=== PATIENT | male | born 1975 | race Caucasian/White ===

== ENCOUNTER 2025-09-21 09:11 | Outpatient (REF) | payer OTHER, SELFPAY ==
[2025-09-21 13:24] LABS: Appearance Urine Clear; Glucose Urine UA Negative (Negative); PH 5.5 (5.0-9.0); Specific Gravity - Urine >= 1.030 (1.005-1.025); UMIC TRIGGER UA YES
[2025-09-21 13:47] LABS: Hematocrit 54.3 % (42.0-52.0); Hemoglobin 18.1 g/dl (14.0-18.0); Mean Corpuscular HGB Conc 33.3 g/dl (31.0-36.0); Mean Corpuscular Hemoglobin 30.0 pg (27.0-33.0); Mean Corpuscular Volume 90.0 fL (80.0-98.0); NRBC Abs Auto 0.000 X10*3/uL (0.0-0.012); NRBC Pct Auto 0.0 /100WBC (0.0-0.2); Platelet Count 297 X10*3/uL (160-400); Red Blood Count 6.03 X10*6/uL (4.60-5.80); White Blood Count 4.9 X10*3/uL (4.8-10.8)
[2025-09-21 13:57] LABS: Alanine Aminotransferase 43 U/L (0-40); Albumin Level 4.4 g/dL (3.5-5.0); Alkaline Phosphatase 76 U/L (39-117); Anion Gap 11 (12-20); Aspartate Amino Transferase 27 U/L (5-37); Blood Urea Nitrogen 17 mg/dL (9-16); Calcium 9.2 mg/dL (8.4-10.2); Carbon Dioxide 27 mmol/L (22-29); Chloride 104 mmol/L (96-108); Cholesterol 305 mg/dL (<200); Estimated Glomerular Filt Rate > 60; HDL Cholesterol 47 mg/dL (>40); Potassium 4.5 mmol/L (3.3-5.1); Sodium 137 mmol/L (135-145); Total Protein 6.8 g/dL (6.5-8.0); Triglycerides 103 mg/dL (<150)
[2025-09-21 14:19] LABS: Thyroid Stimulating Hormone 1.54 uIU/mL (0.32-4.0)
== END 2025-09-21 09:12 | disposition home or self-care (01) ==
LOC: HO.HMGCLDS 09:11
PROVIDERS: PCP Internal Medicine; Visit Provider Internal Medicine
DX: E11.9 Type 2 diabetes mellitus without complications (principal); Z12.5 Encounter for screening for malignant neoplasm of prostate
CPT/HCPCS: 36415; 80048; 80061; 80076; 81001; 83036; 84153; 84443; 85027; 90471

== ENCOUNTER 2025-09-21 09:11 | Outpatient (AMB) | payer OTHER, SELFPAY ==
--- NOTE | 2025-09-21 09:25 | A.OFFPC_ITS ---
Vital Signs 09/21/25 09:28 Height 5 ft 8.9 in Weight 187 lb BMI 27.7 BP 143/83 H Blood Pressure Location Rt brachial Position Sitting Respiration 14 Pulse 82 Pulse Source Pulse Oximeter Temp 97.6 F Temp Source Temporal Artery Scan Pulse Oximetry (%) 99 Oxygen Delivery Method Room Air Intake Visit Reasons: Establish Care - see comments Promotional Marketing Analyst Required: No Accompanied by: Self / Same As Patient Allergies No Known Allergies Allergy (Verified 09/21/25 10:14) Medication List - Last Reconciled 09/21/25 by Gennaro العراقي MD blood sugar diagnostic (OneTouch Verio test strips) As directed Tobacco use date assessed: 09/21/25 Dental Screening Dental Screen Date: 09/21/25 Did you have a dental visit in the last 12 months?: Yes Did you have a dental problem in the last 6 months where you did not have access to dental care?: No Was dental information given to patient?: Patient has dentist HPI HPI Comments History of Present Illness Details History of Present Illness - The patient is a 50 year old individua l presenting to establish care and for routine lab monitoring. - The patient is transferring care due t o dissatisfaction with a previous provider, citing issues with the timing of blood work relative to appointments and billing practices. - The patient has a history of type 2 di abetes, diagnosed in October 2019 with an initial HbA1c of 9.1. - The diagnosis followed a period of sig nificant emotional distress and a diet consisting of soda and candy after the of the patient's son in July 2019. - The patient was previously on Tresiba for five years but discontinued the medication in February. - The patient's HbA1c has decreased from 6.2 to 6.1, which is in the prediabetic range. - Since February, the patient has implemented significant lifestyle and diet changes, resulting in a 10-pound weight loss. - The patient reports morning fasting bl ood glucose levels in the 130s to 140s. - There is no family history of diabetes . 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 - The patient recently completed physica l therapy for the shoulder but notes it may require surgery. - The patient reports a persistent lump on the neck and itchy ears that began before March. Social History - Employment: The patient is a retired [employer] officer. - Substance Use: The patient denies any alcohol use or smoking. - Exercise: The patient has a lifelong h istory of weightlifting but has been limited recently due to a shoulder injury. - The patient engages in cardiovascular exercise, such as running or inclined walking, to manage blood glucose levels. - Nutrition: The patient implemented a s ignificant dietary lifestyle change in February and is dedicated to maintaining it. - The patient reports monitoring macronu trient intake, including protein and fat. - Family: The patient experienced the de ath of a son in 2019 and has another son currently serving in the . Results - Labs (per patient report): HbA1c is 6. 1%, which is a decrease from a previous value of 6.2%. [facility] Medical History (Updated 09/21/25 @ 10:14 by Gennaro العراقي MD) Prediabetes Family History (Updated 09/21/25 @ 09:38 by SANDY Rodriguez) Father Heart attack Mother No problems noted. Social History (Updated 09/21/25 @ 09:39 by SANDY Rodriguez) Housing: House Alcohol intake: current Alcohol intake frequency: does not drink Patient Tobacco Use Status: Former Tobacco user service: No Current occupational status: retired and disabled Cognitive needs: No Hearing needs: Yes (b/l hearing aids) Vision needs: Yes (rx glasses) Questionnaire PHQ-9 Over the last 2 weeks, how often have you been bothered by any of the following problems? 1. Little interest or pleasure in doing things: not at all 2. Feeling down, depressed, or hopeless: not at all 3. Trouble falling or staying asleep, or sleeping too much: not at all 4. Feeling tired or having little energy: not at all 5. Poor appetite or overeating: not at all 6. Feeling bad about yourself - or that you are a failure or have let yourself or your family down: not at all 7. Trouble concentrating on things, such as reading the newspaper or watching television: not at all 8. Moving or speaking so slowly that other people could have noticed. Or the opposite - being so fidgety or restless that you have been moving around a lot more than usual: not at all 9. Thoughts that you would be better off or of hurting yourself in some way: not at all Total score: 0 Source: Developed by Drs. Jaime Ovalle, Sweta May, Gallo Henderson and colleagues, with an educational sotero from [employer]. Thrive Questionnaire Date Thrive assessed: 09/21/25 I am a: Patient What is your living situation today?: I have a steady place to live Within the past 12 months, did the food you bought not last and you didn't have the money to get more?: Never true Within the past 12 months, did you worry whether your food would run out before you got money to buy more?: Never true Do you have trouble paying for medicines?: No Do you have trouble getting transportation to medical appointments?: No Do you have trouble paying your heating and electricity bill?: No Do you have trouble taking care of your child, family member or friend?: No Do you have trouble with day-to-day activities such as bathing, preparing meals, shopping, managing finances, etc.?: No Are you currently unemployed and looking for a job?: No Are you interested in more education?: No Please select the resources that you would like help with: None THRIVE Score: 0 AUDIT C Alcohol Use Questionnaire (AUDIT-C) 1. How often do you have a drink containing alcohol?: Never 3. How often do you have six or more drinks on one occasion?: Never Total Score: 0 FRANNY-7 AMB Questionnaire FRANNY-7 Date FRANNY - 7 assessed: 09/21/25 Feeling nervous, anxious, or on edge: 0 = Not at all Not being able to stop or control worryin = Not at all Worrying too much about different things: 0 = Not at all Trouble relaxin = Not at all Being so restless that it is hard to sit still: 0 = Not at all Becoming easily annoyed or irritable: 0 = Not at all Feeling afraid as if something awful might happen: 0 = Not at all Total FRANNY-7 score (0-4 normal; 5-9 mild; 10-14 moderate; 15-21 severe): 0 Source: Developed by Sweta Roldan Kurt Kroenke and colleagues, with an educational sotero from [employer]. Review of Systems Narrative Review of Systems - Constitutional: Reports 10-pound weight loss. - HEENT: Reports pruritus in the ears, which prevents the use of hearing aids. - Reports wearing glasses. - Neck: Reports a palpable lump that varies in size. - Musculoskeletal: Reports chronic neck pain and right shoulder pain. Physical exam (Primary Care) Vital Signs: Last Vital Signs Temp 97.6 F 09/21/25 09:28 Pulse 82 09/21/25 09:28 Resp 14 09/21/25 09:28 BP 143/83 H 09/21/25 09:28 Pulse Ox 99 09/21/25 09:28 Oxygen Delivery Method Room Air 09/21/25 09:28 BMI result Body Mass Index 27.7 Tobacco/Smoking Status: Tobacco use Status Tobacco use date assessed 09/21/25 09/21/25 09:26 Patient Tobacco Use Status Former Tobacco user 09/21/25 09:39 PHQ-9: PHQ-9 Score PHQ-9: Total score 0 09/21/25 10:00 Thrive Assessment: Date of Thrive Assessment Date Thrive assessed 09/21/25 09/21/25 09:26 Narrative Physical Exam General: Appearance normal, both eyes and all related structures Nutritional Appearance: Well nourished Orientation/consciousness: Patient oriented x3 Limitations: Shoulder and neck limitations due to three squished discs in the neck and a jacked-up shoulder, possibly requiring surgery Head: Normal to inspection Neck: Normal visual inspection, but with a lump noted, likely a lymph node Chest: Normal palpation of entire chest wall Respiratory: Normal respiratory effort Neurology: Patient oriented x3 Office Procedures Flu Questionnaire Does the patient have a severe egg allergy?: No Does the patient have severe life threatening allergies?: No Does the patient have a fever or illness today?: No Has the patient ever had Guillain-[place] Syndrome?: No Has the patient ever had any past reaction to a flu shot?: No Results AMB Hemoglobin A1c AMB Hemoglobin A1c 6.1 % Last Edit by SANDY Rodriguez on 09/21/25 10:00 Immunizations Fluarix [id number] (PF) 45 mcg (15 mcg x 3)/0.5 mL IM syringe Performing Provider: Gennaro العراقي MD Performing Location: [facility] Documented (not given) by: SANDY Rodriguez on 09/21/25 09:39 Reason Not Given: Patient Refused Results Reviewed Results Reviewed: Laboratory Last Values Hgb A1c (Clinic) 6.1 % (4.0-6.0) H 09/21/25 09:48 Coding Level of Care Code Complex visit Add On G2211 Diagnoses Diabetes mellitus E11.9 Prediabetes R73.03 Assessment & Plan Assessment & Plan (1) Diabetes mellitus: Code(s): E11.9 - Type 2 diabetes mellitus without complications (2) Prediabetes: Code(s): R73.03 - Prediabetes Category: Medical Plan Plan - Will order lab work to be done today, including a complete metabolic panel, lipid panel, HbA1c, PSA, and thyroid panel. - Will follow up with the patient via telephone to discuss the lab results. - The patient will continue with diet and lifestyle modifications for management of prediabetes and will not be started on any medications for glucose control at this time. - A prescription for glucose test strips will be provided. - Will provide referrals for physical therapy for chronic right shoulder pain as needed. - Counseled the patient on the benefits of colon cancer screening with Cologuard or colonoscopy, emphasizing that early detection leads to a 100% cure rate. - The decision to proceed with screening is left to the patient. - The patient declined an influenza vaccination. - The patient was reassured that the palpable neck lump is a lymph node and is not of concern. - Schedule a follow-up appointment in six months, which will serve as the annual physical exam. Discussion Notes I established care with this 50-year-old individual who is transferring from another practice. We reviewed the history of type 2 diabetes, noting the current HbA1c of 6.1 places the patient in the prediabetic range. I supported the patient's decision to manage this with lifestyle changes and no medication at this time, given the patient's recent weight loss and commitment to diet and exercise. I provided education on the pathophysiology of diabetes, explaining that it is likely due to decreased insulin production in the patient's case and that all ingested food is ultimately converted to glucose, which requires insulin for metabolism. We discussed cholesterol goals, emphasizing the importance of LDL as a risk factor for heart disease. I strongly counseled the patient on the importance of colon cancer screening, explaining that it begins as a polyp and is 100% curable if detected and removed early. I compared forgoing screening to driving a car without changing the oil. While the patient initially refused, I left the final decision to pursue screening with Cologuard to the patient, to let me know if the patient changes their mind. I reassured the patient that the palpable neck lump is a benign lymph node. We agreed to a plan for comprehensive blood work today, which I will call to review, and a follow-up for an annual physical in six months. Patient Instructions - Please go to the lab to have your blood drawn today. - We will be checking your blood sugar (HbA1c), cholesterol, kidney function, prostate levels (PSA), and thyroid function. - Continue with your current diet and exercise routines, as they are effectively helping to manage your blood sugar. - Maintain your current weight and avoid gaining weight, as this will help your body manage blood sugar. - Do not smoke or drink alcohol. - I have sent a prescription for more glucose test strips to your pharmacy. - Please consider getting screened for colon cancer. - It is 100% curable if caught early. - If you change your mind and would like to proceed with a test, please call our office. - If you need to attend physical therapy for your shoulder, call our office and we will provide the necessary referral. - I will call you with your lab results. - Please schedule a follow-up appointment in six months for your annual physical exam. Orders: Orders AMB Hemoglobin A1c Today Z13.9 - Encounter for screening, unspecified Basic Metabolic Panel Today E11.9 - Type 2 diabetes mellitus without complications Liver Panel Today E11.9 - Type 2 diabetes mellitus without complications Prostate Specific Antigen Scr Today E11.9 - Type 2 diabetes mellitus without complications Influenza [id number] Immunization Today Z23 - Encounter for immunization Complete Blood Count no Diff Today E11.9 - Type 2 diabetes mellitus without complications Lipid Panel Today E11.9 - Type 2 diabetes mellitus without complications Thyroid Stimulating Hormone Today E11.9 - Type 2 diabetes mellitus without complications UA and rflx microscopic Today E11.9 - Type 2 diabetes mellitus without complications Medications: New blood sugar diagnostic (OneTouch Verio test strips) bid 100 ea 0RF diabetes mellitus
[2025-09-21 09:28] VITALS: BP 143/83; PULSE 82; RESP 14; TEMP 36.4; O2SAT 99; BMI 27.7
== END 2025-09-21 10:19 | disposition home or self-care (01) ==
PROVIDERS: PCP Internal Medicine; Visit Provider Internal Medicine
DX: E11.9 Type 2 diabetes mellitus without complications (principal); Z23 Encounter for immunization; Z13.9 Encounter for screening, unspecified